=== PATIENT | male | born 1985 ===

== ENCOUNTER 2018-09-10 22:42 | Emergency (ER) | payer SELFPAY ==
[2018-09-10 22:47] VITALS: TEMP 98.8; O2SAT 98
--- NOTE | 2018-09-10 22:53 | ED PDOC ---
HPI: Psych/Substance Abuse Time Seen by Provider: 09/10/18 22:45 Chief Complaint (Nursing): Alcohol Ingestion Chief Complaint (Provider): Alcohol Ingestion ED Caveat: Intoxicated History Per: Patient, EMS History/Exam Limitations: no limitations Modifying Factor(s): Alcohol Additional Complaint(s): Patient is a 33 year old male who presents via [facility] for evaluation of alcohol intoxication. Patient was found stumbling on the street/sidewalk. Patient admits to drinking tonight. Patient has no physical complaints and denies any trauma. PMD: none Past Medical History Reviewed: Historical Data, Nursing Documentation, Vital Signs Vital Signs: Last Vital Signs Temp 98.8 F 09/10/18 22:45 Pulse 87 09/10/18 22:45 Resp 16 09/10/18 22:45 BP 125/74 09/10/18 22:45 Pulse Ox 98 09/10/18 22:45 - Medical History PMH: No Chronic Diseases - Surgical History Surgical History: No Surg Hx - Family History Family History: States: Unknown Family Hx - Social History Current smoker - smoking cessation education provided: No Alcohol: Social Drugs: Denies - Allergies Allergies/Adverse Reactions: Allergies Allergy/AdvReac Type Severity Reaction Status Date / Time No Known Allergies Allergy Verified 09/10/18 22:46 Review of Systems ROS Statement: Except As Marked, All Systems Reviewed And Found Negative Psych: Positive for: Other (alcohol intoxication) Physical Exam - Reviewed Nursing Documentation Reviewed: Yes Vital Signs Reviewed: Yes - Physical Exam Appears: Positive for: Well, Non-toxic, No Acute Distress (odor of alcohol on breath) Head Exam: Positive for: ATRAUMATIC, NORMOCEPHALIC Skin: Positive for: Normal Color, Warm, Dry Eye Exam: Positive for: EOMI, PERRL ENT: Positive for: Other (Mucus membranes moist. Airway patent, (-) stridor. ) Neck: Positive for: Painless ROM, Supple Cardiovascular/Chest: Positive for: Regular Rate, Rhythm Respiratory: Positive for: Normal Breath Sounds. Negative for: Respiratory Distress Gastrointestinal/Abdominal: Positive for: Soft. Negative for: Tenderness, Distended, Guarding Extremity: Positive for: Normal ROM. Negative for: Deformity Neurologic/Psych: Positive for: Alert, Gait (steady with assistance). Negative for: Aphasia, Facial Droop - ECG O2 Sat by Pulse Oximetry: 98 (RA) Pulse Ox Interpretation: Normal Medical Decision Making Medical Decision Makin Initial Impression: alcohol intoxication Plan: -Accucheck: 95 -Serum alcohol -Re-evaluation -Monitor for clinical sobriety 2320 Serum alcohol: 289 Patient resting comfortably on re-evaluation. Patient requesting a phone to call his sister, but when provided with a phone he does not use it. 0030 Patient sleeping comfortably in no acute distress. 0200 Patient sleeping comfortably in no acute distress. 0340 Patient sleeping comfortably in no acute distress. 0515 Patient sleeping comfortably in no acute distress. 0630 Patient now awake, alert, oriented x3. Gait steady in ED without assistance. Patient offers no complaints. Patient was observed in the ED for 7+ hours with no evidence of clinical/neurological deterioration. Vitals stable. Lab/Diagnostic results d/w the patient in great detail. Diagnosis of alcohol intoxication d/w the patient. Based on history, exam and diagnostic results, plan will be for outpatient follow up with clinic. Patient instructed to follow-up with pmd / referral provided / the clinic in 1- 2 days without fail. Return to the emergency room at any time for any new or w orsening symptoms. Patient states he fully agrees with and understands discharge instructions. States that he agrees with the plan and disposition. Verbalized and repeated discharge instructions and plan. I have given the patient opportunity to ask any additional questions. Disposition - Clinical Impression Clinical Impression: Alcohol ingestion, Alcohol intoxication - Patient ED Disposition Is Patient to be Admitted: No Counseled Patient/Family Regarding: Studies Performed, Diagnosis, Need For Followup - Disposition Referrals: [facility] [Outside] Disposition: Routine/Home Disposition Time: 06:30 Condition: FAIR Additional Instructions: La atencin mdica de emergencia que recibi hoy se dirigi a hans sntomas agudos. Si le recetaron algn medicamento, llnelo y tmelo segn las indicaciones. Los sntomas pueden tardar varios alexandre en resolverse. Regrese al Departamento de Emergencias si hans sntomas empeoran, no mejoran o si tiene otros problemas. Comunquese con payton mdico dentro de 2 alexandre para beverley nueva evaluacin y lala un seguimiento o llame a fabien de los mdicos / clnicas a los que arteaga sido referido y que figuran en el formulario de Informacin de visita al paciente que se incluye en payton paquete de dewey. Lleve todos los documentos que le entregaron al momento del dewey junto con todos los medicamentos que est tomando para payton visita de seguimiento. Nuestro tratamiento no puede reemplazar la atencin mdica continua por parte de un proveedor de atencin primaria (PCP) fuera del d epartamento de emergencias. Instructions: Alcohol Use - When Is Drinking a Problem?, Alcohol Abuse and Alcoholism (DC), Effects of Alcohol on Your Health Forms: Highlighter (Niuean) Print Language: MONGOLIAN - POA Present On Arrival: None Results - Lab Results Lab Results: 09/10/18 09/10/18 23:10 22:49 POC Glucose (mg/dL) 95 Alcohol, Quantitative 289 H
[2018-09-11 07:02] VITALS: BP 127/81; PULSE 84; RESP 17
== END 2018-09-11 06:20 | disposition home or self-care (01) ==
LOC: H.ER 22:42
DX: F10.129 Alcohol abuse with intoxication, unspecified (principal); Y90.8 Blood alcohol level of 240 mg/100 ml or more
CPT/HCPCS: 82948; 99282; G0480